=== PATIENT | male | born 1955 | race Caucasian/White ===

== ENCOUNTER 2017-02-01 06:36 | Inpatient (IN) | payer BC ==
--- NOTE | ~2017-02-01 | PRECARD ---
[facility] [address]. [address] NAME: ROSEANNA TORRES : 51 STATUS : ADM IN [facility]#: [id number] AGE: 61 ADM/REG DATE : 02/01/17 MR#: [id number] REPORT SERV DATE: 02/01/17 DICTATED BY: CAMERON GIPSON DATE: 02/01/17 REPORT STATUS : Draft TRANSCRIBED BY: IMANI DATE: 02/01/17 DATE OF ADMISSION: 02/01/2017 HISTORY OF PRESENT ILLNESS: Mr. Roseanna Torres is a 61-year-old gentleman, who has had chest pain since 4:30 this morning. Mr. Torres has known coronary artery disease, he has stents placed twice previously. He has no discomfort in the last several years until this morning. He denies orthopnea or PND. No palpitations. PAST MEDICAL HISTORY: Coronary artery disease. MEDICATIONS: 1. Aspirin. 2. Plavix. 3. Crestor. SOCIAL HISTORY: No alcohol. No tobacco. 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 FAMILY HISTORY: Noncontributory. REVIEW OF SYSTEMS: Noncontributory. PHYSICAL EXAMINATION: Bp: 130/80. Heart rate: 80. GENERAL: Comfortable, in no acute distress. HEENT: No xanthelasma; lips without cyanosis LUNGS: Clear to auscultation, no wheezes, rales or rhonchi; good breath sounds. COR: No JVD or hepatojugular reflux, no murmurs, rubs or gallops, impulse mid clavicular line without carotid or abdominal bruits; normal S1 and S2. ABDOMEN: Bowel sounds positive, normal activity, without tenderness, masses or hepatosplenomegaly. EXTREMITIES: No edema, cyanosis. SKIN: Normal turgor. Ms: Normal muscle strength, without kyphosis/scoliosis. NEURO/PSYCH: Alert and oriented times 4, no apparent anxiety or depression. LABORATORY FINDINGS: EKG: Sinus rhythm, with ST elevation in 1 aVL and V1, V2. Laboratory is still pending. ASSESSMENT: Mr. Torres is a very nice 61-year-old gentleman with known coronary artery disease with two prior infarcts, with chest pain since 4:30 this morning, acute anterolateral wall myocardial infarction. [facility] [address] [place]. [address] NAME: ROSEANNA TORRES : 51 STATUS : ADM IN PAT#: [id number] AGE: 61 ADM/REG DATE : 02/01/17 MR#: [id number] REPORT SERV DATE: 02/01/17 DICTATED BY: CAMERON GIPSON DATE: 02/01/17 REPORT STATUS : Draft TRANSCRIBED BY: IMANI DATE: 02/01/17 PLAN: To proceed with cardiac catheterization, possible angioplasty, and stent placement. He understands the risks, benefits, alternatives, and requests to proceed. HERMELINDA/IMANI Cameron Gipson M.D. / [id number] CC: Cameron Gipson M.D.
--- NOTE | ~2017-02-01 | DS ---
Discharge Summary [facility] [address] [place]. [address] NAME: ROSEANNA TORRES : 51 STATUS : DIS IN PAT#: [id number] AGE: 61 ADM/REG DATE : 02/01/17 MR#: [id number] REPORT SERV DATE: 02/14/17 DICTATED BY: CAMERON ZUNIGA DATE: 02/14/17 REPORT STATUS : Draft TRANSCRIBED BY: IMANI DATE: 02/14/17 Data Collection from hospitalization DISCHARGE DIAGNOSES: 1. Anterior myocardial infarction/ST-elevation myocardial infarction - acute. 2. Coronary artery disease, status post percutaneous coronary intervention. 3. Hypertension. 4. Hypercholesterolemia. CONSULTATIONS: None. PROCEDURES PERFORMED: Cardiac catheterization and percutaneous coronary intervention on 02/01/2017. MEDICATIONS: Aspirin 81 mg daily, Coreg 6.25 mg twice a day, Prinivil 5 mg daily, Protonix 40 mg at bedtime, Crestor 20 mg at bedtime, Aldactone 25 mg daily, Brilinta 90 mg twice a day, and Coumadin 2 mg at bedtime. CONDITION AT DISCHARGE: Stable. DISPOSITION: The patient was discharged home on a low-sodium, low-cholesterol, cardiac diet with activities as instructed. He would follow up with Dr. Abraham Hein on 02/21/2017. He would follow up at the [facility] on 02/11/2017. He would follow up at the cardiac rehab phase 2 as instructed. HOSPITAL COURSE: This is a 61-year-old man who has had chest pain since around 4:30 a.m. on the morning of this admission. The patient has a known history of coronary artery disease. He has had stents placed twice previously. He has not had discomfort in the past several years until the morning of this admission. He denied palpitations, PND, or orthopnea. EKG revealed sinus rhythm with ST elevation in I, aVL, and V1 and V2. He was felt to have had an acute anterolateral wall myocardial infarction. It was felt that he would need to undergo cardiac catheterization and possible angioplasty and stent placement. He agreed to proceed and was admitted to the hospital at this time for further evaluation and treatment. Upon admission, he was taken to the operating room where he underwent the above-mentioned procedure. He tolerated this well, and there were no complications. On postop day #1, the cath site looked good. He was in a normal sinus rhythm. He had no chest pain or shortness of breath. INR level was 1.1. On 02/03/2017, an echocardiogram was performed. He did have some epigastric pain. He had no chest pain. His lungs were clear bilaterally. Echocardiogram had shown an ejection fraction of 25%-30%.. The following day, INR level had increased to 2.1. Coumadin was adjusted. He was ambulatory. There was no nonsustained ventricular tachycardia on the monitor. He was in a normal sinus rhythm. The patient has had a large anterior myocardial infarction. Statin agent, beta-arnold, SAMIA inhibitor, Aldactone, Coumadin, aspirin, and Brilinta were continued. It was felt that he would need to go home with a LifeVest. Discharge planning was performed. On 02/05/2017, discharge instructions were given. Due to his improved and stable condition, he was discharged home with the above-stated instructions. Discharge Summary [address] [address] NAME: ROSEANNA TORRES : 51 STATUS : DIS IN PAT#: [id number] AGE: 61 ADM/REG DATE : 02/01/17 MR#: [id number] REPORT SERV DATE: 02/14/17 DICTATED BY: CAMERON ZUNIGA DATE: 02/14/17 REPORT STATUS : Draft TRANSCRIBED BY: IMANI DATE: 02/14/17 Information collected by: Sonya Marley I submit the above information as my discharge summary. SNEHA/IMANI Cameron Zuniga M.D. / [id number] CC: Cameron Zuniga M.D.
[~2017-02-01 06:36] MED LIST: ASAB PO; CRESTOR10 PO; LOP25 PO; LORTAB 5 PO; PLAVIX PO; PR25 PO
[2017-02-01 06:52] LABS: BASOPHILS 0.6 %; BASOPHILS ABSOLUTE 0.03 10/3/uL (0.0-0.16); EOSINOPHILS 0.4 %; EOSINOPHILS ABSOLUTE 0.02 10/3/uL (0.0-0.53); HEMATOCRIT 49.5 % (40.0-51.0); HEMOGLOBIN 17.4 g/dL (13.6-17.8); IMMATURE GRANULOCYTES 0.2 %; IMMATURE GRANULOCYTES ABSOLUTE 0.01 10/3/uL (0.0-0.11); MEAN CORPUSCULAR HEMOGLOB 32.5 pg (26.0-34.0); MEAN CORPUSCULAR VOLUME 92.5 fL (80-100); MEAN PLATELET VOLUME 9.9 fL (9.2-13.0); MONOCYTES 17.2 %; MONOCYTES ABSOLUTE 0.86 10/3/uL (0.21-1.20); NEUTROPHILS 63.6 %; NEUTROPHILS ABSOLUTE 3.19 10/3/uL (2.02-8.40); PLATELET COUNT 142 10/3/uL (150-400); RBC DISTRIBUTION WIDTH 12.8 % (12.0-16.0); RED CELL COUNT 5.35 10/6/uL (4.7-6.1)
[2017-02-01 06:54] LABS: MANUAL DIFF NO %; MEAN CORPUS HGB CONC 35.2 g/dL (32.0-36.0)
[2017-02-01] MEDS ORDERED: TOPXL25 PO (07:05)
[2017-02-01] MEDS ORDERED: CRESTOR20 MG PO (07:06)
[2017-02-01 07:10] LABS: CALCIUM, SERUM 8.8 MG/DL (8.5-10.4); CHLORIDE, SERUM 109 MMOL/L (96-112); CO2 (CARBON DIOXIDE) 25 MMOL/L (24-34); CREATININE 1.46 MG/DL (0.70-1.30); GFR AFRICAN AMERICAN 58 ML/MIN (>=60); GFR NON AFRICAN AMERICAN 50 ML/MIN (>=60); GLUCOSE, SERUM 117 MG/DL (60-99); POTASSIUM, SERUM 3.8 MMOL/L (3.5-5.3); SODIUM, SERUM 144 MMOL/L (135-148)
[2017-02-01 07:13] LABS: BUN (BLOOD UREA NITROGEN) 19 MG/DL (6-23); INTERNATIONAL NORMAL RATI 1.1 UNITS (-); PARTIAL THROMBO TIME 27.3 SEC (22.5-37.2); PROTIME (NOT ORD) 13.8 SEC (12.0-14.5)
[2017-02-01 07:14] LABS: CHEST PAIN PROFILE TAT 0 Hrs 26 Mins; TROPONIN I 1.17 NG/ML (<0.05)
[2017-02-01 10:24] LABS: CK-MB 215.9 NG/ML
[2017-02-01 10:26] LABS: CKMB INDEX (NOT ORD) 14.1
[2017-02-01 18:21] LABS: CK-MB 335.6 NG/ML; CKMB INDEX (NOT ORD) 16.6
[2017-02-02 00:44] LABS: BASOPHILS 0.5 %; BASOPHILS ABSOLUTE 0.04 10/3/uL (0.0-0.16); EOSINOPHILS 0.2 %; EOSINOPHILS ABSOLUTE 0.02 10/3/uL (0.0-0.53); HEMATOCRIT 49.8 % (40.0-51.0); HEMOGLOBIN 17.4 g/dL (13.6-17.8); IMMATURE GRANULOCYTES 0.2 %; IMMATURE GRANULOCYTES ABSOLUTE 0.02 10/3/uL (0.0-0.11); LYMPHOCYTES 16.7 %; LYMPHOCYTES ABSOLUTE 1.38 10/3/uL (0.67-4.30); MEAN CORPUS HGB CONC 34.9 g/dL (32.0-36.0); MEAN CORPUSCULAR HEMOGLOB 32.6 pg (26.0-34.0); MEAN CORPUSCULAR VOLUME 93.3 fL (80-100); MEAN PLATELET VOLUME 10.3 fL (9.2-13.0); MONOCYTES ABSOLUTE 0.99 10/3/uL (0.21-1.20); NEUTROPHILS 70.4 %; NEUTROPHILS ABSOLUTE 5.79 10/3/uL (2.02-8.40); PLATELET COUNT 141 10/3/uL (150-400); RBC DISTRIBUTION WIDTH 12.9 % (12.0-16.0); RED CELL COUNT 5.34 10/6/uL (4.7-6.1)
[2017-02-02 00:45] LABS: MANUAL DIFF NO %; WHITE BLOOD CELLS 8.2 10/3/uL (4.5-10.5)
[2017-02-02 00:53] LABS: INTERNATIONAL NORMAL RATI 1.1 UNITS (-); PROTIME (NOT ORD) 14.2 SEC (12.0-14.5)
[2017-02-02 01:13] LABS: CK-MB 213.6 NG/ML
[2017-02-02 01:15] LABS: CALCIUM, SERUM 8.5 MG/DL (8.5-10.4); CHLORIDE, SERUM 105 MMOL/L (96-112); CHOL/HDL RATIO(NOT ORDER) 3.1 (0-5); CHOLESTEROL 157 MG/DL (< 200); GFR AFRICAN AMERICAN 62 ML/MIN (>=60); GFR NON AFRICAN AMERICAN 53 ML/MIN (>=60); GLUCOSE, SERUM 130 MG/DL (60-99); HDL CHOLESTEROL 51 MG/DL (> 39); LDL CHOLESTEROL 80 MG/DL (< 130); NON-HDL CHOLESTEROL 106 MG/DL (< 160); POTASSIUM, SERUM 3.7 MMOL/L (3.5-5.3); SODIUM, SERUM 140 MMOL/L (135-148); TRIGLYCERIDE 134 MG/DL (< 150)
[2017-02-02 01:16] LABS: BUN (BLOOD UREA NITROGEN) 15 MG/DL (6-23); CKMB INDEX (NOT ORD) 13.2; CO2 (CARBON DIOXIDE) 30 MMOL/L (24-34)
[2017-02-02 09:40] LABS: CK-MB 107.8 NG/ML; CKMB INDEX (NOT ORD) 11.4
[2017-02-03 04:32] LABS: CREATININE 1.29 MG/DL (0.70-1.30); GFR AFRICAN AMERICAN 68 ML/MIN (>=60); GFR NON AFRICAN AMERICAN 59 ML/MIN (>=60)
[2017-02-03 04:35] LABS: INTERNATIONAL NORMAL RATI 2.1 UNITS (-)
[2017-02-03 04:44] LABS: PROTIME (NOT ORD) 23.4 SEC (12.0-14.5)
[2017-02-03 05:28] LABS: CALCIUM, SERUM 8.5 MG/DL (8.5-10.4); CHLORIDE, SERUM 103 MMOL/L (96-112); CO2 (CARBON DIOXIDE) 26 MMOL/L (24-34); POTASSIUM, SERUM 3.4 MMOL/L (3.5-5.3); SODIUM, SERUM 140 MMOL/L (135-148)
[2017-02-03 05:29] LABS: BUN (BLOOD UREA NITROGEN) 19 MG/DL (6-23); GLUCOSE, SERUM 95 MG/DL (60-99)
[2017-02-04 03:54] LABS: BASOPHILS 0.7 %; BASOPHILS ABSOLUTE 0.04 10/3/uL (0.0-0.16); EOSINOPHILS 1.8 %; EOSINOPHILS ABSOLUTE 0.11 10/3/uL (0.0-0.53); HEMATOCRIT 46.3 % (40.0-51.0); HEMOGLOBIN 15.9 g/dL (13.6-17.8); IMMATURE GRANULOCYTES 0.2 %; IMMATURE GRANULOCYTES ABSOLUTE 0.01 10/3/uL (0.0-0.11); LYMPHOCYTES 27.5 %; LYMPHOCYTES ABSOLUTE 1.69 10/3/uL (0.67-4.30); MEAN CORPUS HGB CONC 34.3 g/dL (32.0-36.0); MEAN CORPUSCULAR VOLUME 93.2 fL (80-100); MEAN PLATELET VOLUME 10.7 fL (9.2-13.0); MONOCYTES 11.2 %; MONOCYTES ABSOLUTE 0.69 10/3/uL (0.21-1.20); NEUTROPHILS 58.6 %; PLATELET COUNT 145 10/3/uL (150-400); RED CELL COUNT 4.97 10/6/uL (4.7-6.1); WHITE BLOOD CELLS 6.1 10/3/uL (4.5-10.5)
[2017-02-04 03:59] LABS: INTERNATIONAL NORMAL RATI 2.7 UNITS (-)
[2017-02-04 04:02] LABS: BUN (BLOOD UREA NITROGEN) 20 MG/DL (6-23); CALCIUM, SERUM 8.3 MG/DL (8.5-10.4); CHLORIDE, SERUM 104 MMOL/L (96-112); CO2 (CARBON DIOXIDE) 27 MMOL/L (24-34); GFR AFRICAN AMERICAN 57 ML/MIN (>=60); GFR NON AFRICAN AMERICAN 49 ML/MIN (>=60); POTASSIUM, SERUM 3.7 MMOL/L (3.5-5.3); SODIUM, SERUM 141 MMOL/L (135-148)
[2017-02-04 04:03] LABS: GLUCOSE, SERUM 122 MG/DL (60-99)
[2017-02-04 04:11] LABS: MANUAL DIFF NO %
[2017-02-04 04:13] LABS: PROTIME (NOT ORD) 28.1 SEC (12.0-14.5)
[2017-02-04] MEDS ORDERED: PROTONIX PO (08:32)
[2017-02-04] MEDS ORDERED: BRILINTA90 MG PO (08:32)
[2017-02-04] MEDS ORDERED: C2 PO (08:32)
[2017-02-04] MEDS ORDERED: COREG6 PO (08:33)
[2017-02-04] MEDS ORDERED: PRIN5 PO (08:33)
[2017-02-04] MEDS ORDERED: SPIRO25 PO (08:33)
[2017-02-05 05:29] LABS: BUN (BLOOD UREA NITROGEN) 22 MG/DL (6-23); CALCIUM, SERUM 8.7 MG/DL (8.5-10.4); CHLORIDE, SERUM 105 MMOL/L (96-112); CO2 (CARBON DIOXIDE) 23 MMOL/L (24-34); CREATININE 1.49 MG/DL (0.70-1.30); GFR AFRICAN AMERICAN 57 ML/MIN (>=60); GFR NON AFRICAN AMERICAN 49 ML/MIN (>=60); POTASSIUM, SERUM 3.9 MMOL/L (3.5-5.3); SODIUM, SERUM 140 MMOL/L (135-148)
[2017-02-05 05:31] LABS: INTERNATIONAL NORMAL RATI 2.5 UNITS (-); PROTIME (NOT ORD) 26.6 SEC (12.0-14.5)
[2017-02-05 05:39] LABS: BASOPHILS 0.3 %; BASOPHILS ABSOLUTE 0.02 10/3/uL (0.0-0.16); EOSINOPHILS 2.7 %; GLUCOSE, SERUM 87 MG/DL (60-99); HEMATOCRIT 43.2 % (40.0-51.0); HEMOGLOBIN 14.8 g/dL (13.6-17.8); IMMATURE GRANULOCYTES 0.4 %; IMMATURE GRANULOCYTES ABSOLUTE 0.03 10/3/uL (0.0-0.11); LYMPHOCYTES 20.7 %; LYMPHOCYTES ABSOLUTE 1.51 10/3/uL (0.67-4.30); MEAN CORPUS HGB CONC 34.3 g/dL (32.0-36.0); MEAN CORPUSCULAR VOLUME 93.5 fL (80-100); MEAN PLATELET VOLUME 10.7 fL (9.2-13.0); MONOCYTES 8.5 %; MONOCYTES ABSOLUTE 0.62 10/3/uL (0.21-1.20); NEUTROPHILS 67.4 %; NEUTROPHILS ABSOLUTE 4.92 10/3/uL (2.02-8.40); PLATELET COUNT 145 10/3/uL (150-400); RBC DISTRIBUTION WIDTH 13.3 % (12.0-16.0); RED CELL COUNT 4.62 10/6/uL (4.7-6.1); WHITE BLOOD CELLS 7.3 10/3/uL (4.5-10.5)
[2017-02-05 05:47] LABS: MANUAL DIFF NO %
== END 2017-02-05 19:51 | disposition home or self-care (01) | DRG 247 ==
LOC: CORLMH 06:36 → SSU2 06:40 → CCU 08:45 → 5NO 02-03 15:31
PROVIDERS: Internal Medicine Cardiovascular Disease; Specialist
PROC: 4A023N7 Measurement of Cardiac Sampling and Pressure, Left Heart, Percutaneous Approach (ICD-10-PCS; principal; 2017-02-01)
PROC: 027035Z Dilation of Coronary Artery, One Artery with Two Drug-eluting Intraluminal Devices, Percutaneous Approach (ICD-10-PCS; 2017-02-01)
PROC: B2111ZZ Fluoroscopy of Multiple Coronary Arteries using Low Osmolar Contrast (ICD-10-PCS; 2017-02-01)
PROC: B2151ZZ Fluoroscopy of Left Heart using Low Osmolar Contrast (ICD-10-PCS; 2017-02-01)
DX: I21.09 ST elevation (STEMI) myocardial infarction involving other coronary artery of anterior wall (principal); I10 Essential (primary) hypertension; I25.10 Atherosclerotic heart disease of native coronary artery without angina pectoris; E78.00 Pure hypercholesterolemia, unspecified; Z95.5 Presence of coronary angioplasty implant and graft; I25.2 Old myocardial infarction; Z79.82 Long term (current) use of aspirin; Z79.02 Long term (current) use of antithrombotics/antiplatelets; Z79.899 Other long term (current) drug therapy; Z88.0 Allergy status to penicillin
CPT/HCPCS: 71010; 80048; 80061; 82550; 82553; 82565; 83735; 84484; 85025; 85347; 85610; 85730; 87641; 93005; 93458; 99152; 99153; 99285; A9270-GY; C1725; C1760; C1769; C1874; C1887; C1894; C8929; C9606; J2250; J2405; J3010; Q9957; Q9967